=== PATIENT | male | born 1995 | race Caucasian/White ===

== ENCOUNTER 2019-10-26 11:39 | Emergency (ER) | payer OTHER ==
[2019-10-26] MEDS ORDERED: Bacitracin 1 PK ONE (11:55)
== END 2019-10-26 12:00 | disposition home or self-care (01) ==
LOC: BURERS 11:39
DX: S61.250A Open bite of right index finger without damage to nail, initial encounter (principal); F90.9 Attention-deficit hyperactivity disorder, unspecified type; F32.9 Major depressive disorder, single episode, unspecified; Z79.899 Other long term (current) drug therapy; W54.0XXA Bitten by dog, initial encounter
CPT/HCPCS: 99283

== ENCOUNTER 2020-06-30 11:18 | Emergency (ER) | payer OTHER | END 2020-06-30 11:42 | disposition home or self-care (01) | LOC: BURERS 11:18 | DX: S61.251A Open bite of left index finger without damage to nail, initial encounter (principal); S61.250A Open bite of right index finger without damage to nail, initial encounter; S61.257A Open bite of left little finger without damage to nail, initial encounter; S61.256A Open bite of right little finger without damage to nail, initial encounter; S61.253A Open bite of left middle finger without damage to nail, initial encounter; S61.252A Open bite of right middle finger without damage to nail, initial encounter; S61.255A Open bite of left ring finger without damage to nail, initial encounter; S61.254A Open bite of right ring finger without damage to nail, initial encounter; S61.052A Open bite of left thumb without damage to nail, initial encounter; S61.051A Open bite of right thumb without damage to nail, initial encounter; W55.01XA Bitten by cat, initial encounter | CPT/HCPCS: 99283 ==